=== PATIENT | female | born 1975 | race Hispanic/Latino ===

== ENCOUNTER 2023-09-16 06:54 | Day surgery (SDC) | payer OTHER ==
[2023-09-15 15:36] LABS: BASOPHILS # (AUTO) 0.07 K/uL (0.00-0.20); BASOPHILS % (AUTO) 0.8 % (0.0-5.0); EOSINOPHILS % (AUTO) 2.2 % (0.0-8.0); HEMATOCRIT 38.2 % (36-48); IMMATURE GRANULOCYTE ABSOLUTE 0.03 K/uL (0-1); LYMPHOCYTES # (AUTO) 2.1 K/uL (1.0-4.8); LYMPHOCYTES % (AUTO) 22.9 % (21.0-51.0); MEAN CORPUSCULAR HEMOGLOBIN 30.4 pg (27.0-33.0); MONOCYTES # (AUTO) 0.6 K/uL (0.1-1.0); MONOCYTES % (AUTO) 6.7 % (3.0-13.0); NEUTROPHILS # (AUTO) 6.3 K/uL (1.8-7.7); NEUTROPHILS % (AUTO) 67.1 % (40.0-77.0); PLATELET COUNT (AUTO) 258 K/uL (130-400); RED BLOOD CELL COUNT(AUTO) 4.15 MIL/uL (4.00-5.50); RED CELL DISTRIBUTION WIDTH 11.9 % (11.0-15.5); WHITE BLOOD COUNT (AUTO) 9.3 K/uL (4.8-10.8)
[2023-09-15 16:31] VITALS: BP 114/73; PULSE 78; RESP 14
[~2023-09-16] VITALS: Ht 157.5 cm; Wt 71.8 kg
[2023-09-16] VITALS (15 sets, daily range): BP systolic 98–119; BP diastolic 53–75; PULSE 55–80; RESP 14–18
[2023-09-16] MEDS ORDERED: LACTATED RINGERS 1000ML 1,000 ML IV ONE (07:13)
[2023-09-16] MEDS ORDERED: LEVO50TA6 PO (07:23)
[2023-09-16] MEDS ORDERED: OLME20TA73 PO (07:23)
[2023-09-16] MEDS ORDERED: CEFAZOLIN SODIUM 2 GM VIAL ONE (07:33)
[2023-09-16] MEDS ORDERED: PROPOFOL 10 MG/ML 20ML VIAL IV ONE (07:58)
[2023-09-16] MEDS ORDERED: LIDOCAINE PF 100MG/5ML (2%) SYRINGE 5ML ONE (07:58)
[2023-09-16] MEDS ORDERED: MIDAZOLAM HCL 1 MG/ML 2ML VIAL ONE (07:58)
[2023-09-16] MEDS ORDERED: ROCURONIUM 10MG/1ML SYR 10 MG/ML ML ONE (07:58)
[2023-09-16] MEDS ORDERED: FENTANYL CITRATE PF 50 MCG/1 ML 2ML VIAL ONE (07:59)
[2023-09-16] MEDS ORDERED: DEXAMETHASONE SOD PHOSPHATE 4 MG/ML 1ML VIAL ONE (08:01)
[2023-09-16] MEDS ORDERED: ONDANSETRON 4MG INJ ONE (08:01)
[2023-09-16] MEDS ORDERED: CEFAZOLIN SODIUM 2 GM VIAL IVPB ONE (08:20)
[2023-09-16] MEDS ORDERED: EPHEDRINE SULFATE 50 MG/ML AMPULE ONE (08:43)
[2023-09-16] MEDS ORDERED: NEOSTIGMINE 5MG/5ML SYR IV ONE (09:05)
[2023-09-16] MEDS ORDERED: GLYCOPYRROLATE 1 MG/5 ML SYRINGE ONE (09:05)
[2023-09-16] MEDS ORDERED: KETOROLAC 30MG VIAL (30MG/ML) ONE (09:07)
[2023-09-16] MEDS ORDERED: MEPERIDINE-PF 25 MG/ML SYG ONE (09:25)
== END 2023-09-16 10:45 | disposition home or self-care (01) ==
LOC: DAH 06:54
PROVIDERS: ATTEND Obstetrics & Gynecology
DX: Z30.2 Encounter for sterilization (principal); N92.0 Excessive and frequent menstruation with regular cycle; N93.9 Abnormal uterine and vaginal bleeding, unspecified; N95.1 Menopausal and female climacteric states; I10 Essential (primary) hypertension; Z79.899 Other long term (current) drug therapy
CPT/HCPCS: 84703; 85025; 86850; 86900; 86901; 36415; 58670; 58563; 88305; A6260; J1100; A4663; J7120 ×2; A4351; A4215 ×2; J3010; J3490 ×2; J2710; J2001; J2250; J2704; J2405; J1885; J2175; J0690 ×2; C1769; A4649; A4223; A4222; A4221; A4600